=== PATIENT | female | born 1990 | race Caucasian/White ===

== ENCOUNTER 2021-07-23 08:17 | Outpatient (CLI) | payer BC | END 2021-07-23 08:18 | disposition home or self-care (01) | LOC: CSHLAB 08:17 | PROVIDERS: ATTEND Obstetrics & Gynecology | DX: Z01.812 Encounter for preprocedural laboratory examination (principal); Z20.822 Contact with and (suspected) exposure to COVID-19; D27.0 Benign neoplasm of right ovary | CPT/HCPCS: 85027; 86850; 86900; 86901; U0003; U0005 ==

== ENCOUNTER 2021-07-25 09:57 | Day surgery (SDC) | payer BC ==
[2021-07-23 08:41] LABS: Hemoglobin 12.1 g/dL (12.0-15.5); Mean Corpuscular HGB CONC 33.8 g/dL (32.0-36.0); Mean Corpuscular Hemoglobin 31.1 pg (27.0-33.0); Mean Platelet Volume 9.9 fl (7.4-10.4); Platelet Count 256 10x3/uL (150-450); RBC Distribution Width 14.1 % (11.5-14.5); Red Blood Cell (RBC) Count 3.89 10x6/uL (3.90-5.03); White Blood Cell (WBC) Count 9.7 10x3/uL (3.5-10.5)
[2021-07-23 21:41] LABS: SARS-CoV-2 PCR by NAA Not Detected (NotDetected)
[2021-07-24 09:38] VITALS: BMI 44.4
[2021-07-25] MEDS ORDERED: Lidocaine 1% MPF 2 ML VIAL ONE (10:23)
[2021-07-25] MEDS ORDERED: Bupivacaine PF 0.5% 30 ML VIAL ONE (11:24)
[2021-07-25] MEDS ORDERED: EPINEPHrine 1 MG/ML AMP ONE (11:24)
[2021-07-25] MEDS ORDERED: Fentanyl 100 MCG/2 ML VIAL ONE ×3 (11:38→13:40)
[2021-07-25] MEDS ORDERED: PROPOFOL 20 ML ONE (11:38)
[2021-07-25] MEDS ORDERED: Famotidine/PF 20 mg/2ml Vial ONE (11:38)
[2021-07-25] MEDS ORDERED: Ondansetron PF 4 MG/2 ML Vial ONE ×2 (11:39→14:36)
[2021-07-25] MEDS ORDERED: Rocuronium Bromide 10 MG/ML (10ML VIAL) ONE (11:39)
[2021-07-25] MEDS ORDERED: Ketorolac Tromethamine 30 MG/ML VIAL ONE (11:39)
[2021-07-25] MEDS ORDERED: Dexamethasone 20 MG/5 ML VIAL ONE (11:39)
[2021-07-25] MEDS ORDERED: ceFAZolin 2 GM/Dextrose 50 ML IVPB ONE (11:45)
[2021-07-25] MEDS ORDERED: Meperidine HCl/PF 25 MG/ML VIAL ONE ×2 (13:11→13:22)
[2021-07-25] MEDS ORDERED: Glycopyrrolate 0.2 MG/ML 5 ML SYRINGE ONE (13:13)
== END 2021-07-25 15:45 | disposition home or self-care (01) ==
LOC: CSHSDC 09:57
PROVIDERS: ATTEND Obstetrics & Gynecology
PROC: 0UT04ZZ Resection of Right Ovary, Percutaneous Endoscopic Approach (ICD-10-PCS; principal; 2021-07-25)
PROC: 0UT54ZZ Resection of Right Fallopian Tube, Percutaneous Endoscopic Approach (ICD-10-PCS; principal; 2021-07-25)
DX: O99.891 Other specified diseases and conditions complicating pregnancy (principal); D27.0 Benign neoplasm of right ovary; O99.612 Diseases of the digestive system complicating pregnancy, second trimester; K66.0 Peritoneal adhesions (postprocedural) (postinfection); Z87.891 Personal history of nicotine dependence; Z3A.14 14 weeks gestation of pregnancy; Z91.018 Allergy to other foods; Z20.822 Contact with and (suspected) exposure to COVID-19
CPT/HCPCS: 85027; 86850; 86900; 86901; 88305; 88307; J0171; J0690; J1100; J1885; J2175; J2405; J2704; J3010; S0020; S0028; U0003; U0005

== ENCOUNTER 2021-07-26 05:30 | Emergency (ER) | payer BC | END 2021-07-26 06:13 | disposition home or self-care (01) | LOC: CSHERS 05:30 | DX: O9A.212 Injury, poisoning and certain other consequences of external causes complicating pregnancy, second trimester (principal); T81.30XA Disruption of wound, unspecified, initial encounter; O99.332 Smoking (tobacco) complicating pregnancy, second trimester; F17.210 Nicotine dependence, cigarettes, uncomplicated; Z3A.16 16 weeks gestation of pregnancy | CPT/HCPCS: 99282 ==

== ENCOUNTER 2021-07-30 16:37 | Observation (INO) | payer BC ==
[2021-07-30 17:21] LABS: #Monocytes 0.5 10x3/uL (0.0-1.1); #Neutrophils 12.1 10x3/uL (1.5-8.4); %Basophils 0.1 % (0.0-2.0); %Eosinophils 0.1 % (0.0-6.0); %Lymphocytes 3.8 % (18.0-47.0); %Neutrophils 91.5 % (40.0-75.0); Hemoglobin 13.1 g/dL (12.0-15.5); Mean Corpuscular HGB CONC 34.7 g/dL (32.0-36.0); Mean Corpuscular Hemoglobin 31.3 pg (27.0-33.0); Mean Corpuscular Volume 90.2 fl (81.6-98.3); Mean Platelet Volume 10.2 fl (7.4-10.4); Platelet Count 279 10x3/uL (150-450); RBC Distribution Width 13.8 % (11.5-14.5); Red Blood Cell (RBC) Count 4.18 10x6/uL (3.90-5.03); White Blood Cell (WBC) Count 13.3 10x3/uL (3.5-10.5)
[2021-07-30 17:32] LABS: ALT (SGPT) 10 U/L (8-55); AST (SGOT) 10 U/L (5-34); Albumin 3.8 g/dL (3.5-5.0); Alkaline Phosphatase 53 U/L (40-110); Anion Gap 16 mmol/L (10-20); BUN (Urea Nitrogen) 6 mg/dL (7.0-18.7); Bilirubin, Total 0.4 mg/dL (0.2-1.2); Calc. Creatinine Clearance 0 mL/min (70-130); Calcium 8.8 mg/dL (7.8-10.44); Carbon Dioxide 17 mmol/L (22-29); Chloride 103 mmol/L (98-107); Globulin 2.7 g/dL (2.4-3.5); Glucose 125 mg/dL (70-105); Potassium 3.4 mmol/L (3.5-5.1); Protein, Total 6.5 g/dL (6.0-8.3); Sodium 133 mmol/L (136-145)
[2021-07-30 18:11] LABS: SARS-CoV-2 NAA Rapid Test Not Detected (NotDetected)
[2021-07-30 18:51] LABS: Bilirubin Neg (Negative); Blood, Urine Negative (Negative); Clarity Clear (Clear); Glucose, Urine (Dipstick) Normal (Negative); Ketone, Urine 5 mg/dL (Negative); Leukocyte 25 (Negative); Nitrite Negative (Negative); Protein, Urine (Dipstick) 30 mg/dl (Neg-Trace); Urobilinogen Normal mg/dL (Less than 2)
[2021-07-30 19:02] LABS: Bacteria/HPF 2+ HPF (None Seen); Mucous/LPF 2+ LPF (<2+); RBC/HPF 0-3 HPF (0-3); Squamous Epithelial 0-3 HPF (0-3); WBC/HPF 0-3 HPF (0-3); Yeast-Budding Rare HPF (None Seen)
[2021-07-30] MEDS ORDERED: cefTRIAXone\\ROCEPHIN 2 GM VIAL ONE (19:21)
[2021-07-30 19:59] LABS: Lactic Acid 1.3 mmol/L (0.5-2.2)
[2021-07-30] MEDS ORDERED: Ondansetron PF 4 MG/2 ML Vial IVP PRN ×2 (20:00→22:20)
[2021-07-30] MEDS ORDERED: Ondansetron ODT 4 MG TAB SL PRN (20:00)
[2021-07-30] MEDS ORDERED: Acetaminophen 325 MG TAB PO PRN (20:00)
[2021-07-30 20:17] VITALS: BMI 43.8
[2021-07-30] MEDS ORDERED: Zolpidem Tartrate 5 MG TAB PO PRN (22:20)
[2021-07-30] MEDS ORDERED: Promethazine HCl 25 MG/ML VIAL IM PRN (22:20)
[2021-07-30] MEDS ORDERED: Acetaminophen 500 MG TAB PO PRN (22:20)
[2021-07-30] MEDS ORDERED: hydrALAZINE 20 MG/ML VIAL SLOW IVP PRN (22:20)
[2021-07-31] MEDS: Lactated Ringer's 1,000 ML IV SCH ×3 (00:51→16:20)
[2021-07-31] MEDS: cefTRIAXone\\ROCEPHIN 1 GM in Sodium Chloride 0.9% 100 ML IVPB SCH ×2 (08:28→19:29)
[2021-07-31 08:58] LABS: Hemoglobin 11.3 g/dL (12.0-15.5); Mean Corpuscular HGB CONC 34.3 g/dL (32.0-36.0); Mean Corpuscular Hemoglobin 31.2 pg (27.0-33.0); Mean Corpuscular Volume 90.9 fl (81.6-98.3); Mean Platelet Volume 10.2 fl (7.4-10.4); Platelet Count 213 10x3/uL (150-450); RBC Distribution Width 13.9 % (11.5-14.5); Red Blood Cell (RBC) Count 3.62 10x6/uL (3.90-5.03)
[2021-07-31 19:51] VITALS: BP 130/60; TEMP 98.4
== END 2021-07-31 20:33 | disposition home or self-care (01) ==
LOC: CSHERS 16:37 → CSHPP 19:54
PROVIDERS: ADMIT Obstetrics & Gynecology; ATTEND Obstetrics & Gynecology
DX: O99.891 Other specified diseases and conditions complicating pregnancy (principal); R50.9 Fever, unspecified; O21.9 Vomiting of pregnancy, unspecified; R19.7 Diarrhea, unspecified; O34.211 Maternal care for low transverse scar from previous cesarean delivery; O99.212 Obesity complicating pregnancy, second trimester; E66.01 Morbid (severe) obesity due to excess calories; Z3A.15 15 weeks gestation of pregnancy; Z91.018 Allergy to other foods; Z20.822 Contact with and (suspected) exposure to COVID-19
CPT/HCPCS: 36415; 76815; 80053; 81003; 81015; 83605; 85025; 85027; 87040; 87077; 87086; 87804; 96361; 96374; J0696; J3490; J7120; U0002

== ENCOUNTER 2022-01-14 08:15 | Outpatient (CLI) | payer BC ==
[2022-01-14 10:09] LABS: #Eosinphils 0.1 10x3/uL (0.0-0.5); #Neutrophils 8.2 10x3/uL (1.5-8.4); %Basophils 0.1 % (0.0-2.0); %Eosinophils 0.6 % (0.0-6.0); %Lymphocytes 12.5 % (18.0-47.0); %Monocytes 9.3 % (0.0-10.0); %Neutrophils 76.7 % (40.0-75.0); Hemoglobin 9.9 g/dL (12.0-15.5); Mean Corpuscular HGB CONC 33.1 g/dL (32.0-36.0); Mean Corpuscular Hemoglobin 27.5 pg (27.0-33.0); Mean Corpuscular Volume 83.1 fl (81.6-98.3); Mean Platelet Volume 10.3 fl (7.4-10.4); Platelet Count 286 10x3/uL (150-450); RBC Distribution Width 14.1 % (11.5-14.5); White Blood Cell (WBC) Count 10.7 10x3/uL (3.5-10.5)
[2022-01-14 10:28] LABS: HBSAg Index 0.18 S/CO (0-0.99); Hep B Surf Ag Non-Reactive S/CO (NonReactive)
[2022-01-14 10:29] LABS: SARS-CoV-2 NAA Rapid Test Not Detected (NotDetected); Syphilis Antibody Nonreactive (Nonreactive); Syphilis Antibody Index 0.03 S/CO (<1.00 Non-Reactive)
== END 2022-01-14 08:16 | disposition home or self-care (01) ==
LOC: CSHLAB 08:15
PROVIDERS: ATTEND Obstetrics & Gynecology
DX: Z01.812 Encounter for preprocedural laboratory examination (principal); Z20.822 Contact with and (suspected) exposure to COVID-19
CPT/HCPCS: 85025; 86780; 86850; 86900; 86901; 87340; U0002